=== PATIENT | male | born 1955 | race Caucasian/White ===

== ENCOUNTER 2017-03-30 17:58 | Emergency (ER) | payer MEDICARE, MEDICAID ==
[~2017-03-30] VITALS: Ht 177.8 cm; Wt 80.0 kg
[~2017-03-30 17:58] MED LIST: BENZ0.5T3 PO; CYAN10009 PO; DIVA-18 PO; OLAN15TA17 PO; OMEP20CA10 PO
[2017-03-30] MEDS ORDERED: KETOROLAC 30MG/ML VIAL IV STA (18:21)
[2017-03-30] MEDS ORDERED: SODIUM CHLORIDE 0.9% 1,000 ML IV ONE (18:21)
[2017-03-30] MEDS ORDERED: ONDANSETRON HCL 4MG/2ML VIAL IV STA (18:21)
[2017-03-30 18:56] LABS: BASOPHILS % 0.5 % (0.0-2.0); EOSINOPHILS % 1.5 % (0.0-5.0); HEMOGLOBIN. 15.7 g/dL (14.0-18.0); LYMPHOCYTES % 14.7 % (20.0-50.0); MEAN CORPUSCULAR VOLUME 95.6 fL (80.0-94.0); MEAN PLATELET VOLUME 10.2 fl (7.4-10.4); MONOCYTES % 4.9 % (2.0-8.0); NEUTROPHILS % 78.4 % (40.0-76.0); PLATELET 179 x1000/uL (130-400); RED BLOOD CELL COUNT 4.91 mill/uL (4.7-6.1)
[2017-03-30 18:57] LABS: CHLORIDE 107 mEq/L (98-107)
[2017-03-30 18:59] LABS: PROTHROMBIN TIME 10.3 sec (9.4-11.6)
[2017-03-30 19:06] LABS: CARBON DIOXIDE 26 mEq/L (21-32); ETHANOL BLOOD < 10 mg/dL
[2017-03-30 23:00] VITALS: BP 127/71
== END 2017-03-30 23:34 | disposition home or self-care (01) ==
LOC: ER 18:23
DX: R10.13 Epigastric pain (principal); D72.829 Elevated white blood cell count, unspecified
CPT/HCPCS: 36415; 74176; 80053; 83690; 85025; 85610; 93005; 96361; 96374; 99285; G0482; J1885; J2405; J7030